=== PATIENT | male | born 1930 | race Two or more races ===

== ENCOUNTER 2017-11-17 10:17 | Outpatient (CLI) | payer OTHER ==
[~2017-11-17 10:17] MED LIST: ARICEPT10 MG; ARICEPT10 MG PO; CIPRO500 MG PO; DOXYCYCLINE HY100 M2 PO; FOLIC ACID1 MG; HYDROXYZIN10 MG/5 M1; JEVITY 1.5 CA1000 ML; LIPITOR20 MG; LIPITOR40 MG PO; PLAVIX75 MG; PLAVIX75 MG PO; SALINE NASAL SP45 ML NS; XARELTO15 MG PO; ZANTAC150 MG
== END 2017-11-17 15:31 | disposition home or self-care (01) ==
LOC: RAD 10:17
DX: M25.552 Pain in left hip (principal); S09.8XXA Other specified injuries of head, initial encounter